=== PATIENT | female | born 1975 | race Caucasian/White ===

== ENCOUNTER 2017-09-03 10:04 | Emergency (ER) | END 2017-09-03 12:53 | disposition home or self-care (01) ==

== ENCOUNTER 2017-09-23 13:01 | Emergency (ER) | END 2017-09-23 16:42 | disposition home or self-care (01) ==

== ENCOUNTER 2017-10-04 14:49 | Day surgery (SDC) | END 2017-10-05 01:22 | disposition home or self-care (01) ==